=== PATIENT | female | born 1945 | race Caucasian/White ===

== ENCOUNTER 2017-09-14 11:14 | Emergency (ER) | payer OTHER ==
[2017-09-14 11:29] VITALS: TEMP 97.9
--- NOTE | 2017-09-14 12:22 | EDPHY ---
H & P Time Seen by Provider: 09/14/17 12:09 HPI/ROS: Chief complaint. Shortness of breath, cough HPI. 72-year-old female visiting from [place] presents with fever achiness cough for 6 days. Feels like she is wheezing. Generally weak. Nausea without vomiting or diarrhea. Exposure to flu. She did receive a flu shot. Using promethazine with codeine for cough. Shortness of breath with ambulation. No abdominal pain or chest discomfort. ROS Constitutional. Fever and chills and weakness Eyes. no problems with vision ENT. Congestion Cardiovascular. no chest pain Respiratory. Short of breath cough Abdominal. no abdominal pain, no nausea/vomiting, no diarrhea . no problems urinating MS. no calf pain/swelling, no neck/back pain, no joint pain Skin. no rash Lymph. no swollen glands Neuro. no headache, no dizziness, no difficulty walking or with speech Past Medical/Surgical History: Non-Hodgkin's lymphoma with splenectomy Social History: , nonsmoker, no alcohol Smoking Status: Never smoked Physical Exam: General Appearance: Alert well-developed female moderate distress vital signs are stable Eyes: Pupils equal and round no pallor or injection. ENT, pharynx slightly injected without exudate. Mucous membranes are moist Respiratory: Mild inspiratory expiratory rhonchi Cardiovascular: Regular rate and rhythm. Gastrointestinal: Abdomen is soft and nontender, no masses, bowel sounds normal. Neurological: Awake and alert, sensory and motor exams grossly normal. Skin: Warm and dry, no rashes. Musculoskeletal: Neck is supple nontender. Extremities symmetrical, full range of motion. Psychiatric: Patient is oriented X 3, there is no agitation. Constitutional: Initial Vital Signs Temperature (C) 36.6 C 09/14/17 11:27 Heart Rate 74 09/14/17 11:27 Respiratory Rate 18 09/14/17 11:27 Blood Pressure 119/69 09/14/17 11:27 O2 Sat (%) 96 09/14/17 11:27 O2 Delivery Mode Room Air Allergies/Adverse Reactions: No Known Allergies Allergy (Unverified 09/14/17 11:26) Home Medications: Medication Instructions Recorded Benzonatate [Tessalon Pearles (RX)] 100 mg PO Q4-6PRN PRN #20 cap 09/14/17 Promethazine With Codeine 09/14/17 Medical Decision Making - Diagnostics Imaging Results: Chest x-ray reviewed by me shows no evidence for pneumonia Procedures: Flu swab is positive IV normal saline with 1 L ED Course/Re-evaluation: Re-evaluation 2:00 p.m.. Patient is stable. Patient, her , and I discussed imaging and lab results. We discussed treatment plan and the fact that the patient is out of the window for treatment with Tamiflu. We talked about criteria for return importance of follow-up and further evaluation. They expressed understanding and agreement Differential Diagnosis: Viral syndrome, I concur considered influenza and the patient has flu B. I also then considered pneumonia as well as electrolyte abnormalities she has such as findings from [facility]. - Data Points Laboratory Results: Laboratory Results 09/14/17 12:40 09/14/17 12:40 09/14/17 09/14/17 09/14/17 12:40 12:40 11:36 WBC 4.19 10^3/uL 10^3/uL (3.80-9.50) RBC 4.75 10^6/uL 10^6/uL (4.18-5.33) Hgb 14.3 g/dL g/dL (12.6-16.3) Hct 44.2 % % (38.0-47.0) MCV 93.1 fL fL (81.5-99.8) MCH 30.1 pg pg (27.9-34.1) MCHC 32.4 g/dL g/dL (32.4-36.7) RDW 14.4 % % (11.5-15.2) Plt Count 196 10^3/uL 10^3/uL (150-400) MPV 10.7 fL fL (8.7-11.7) Neut % (Auto) 32.1 % L % (39.3-74.2) Lymph % (Auto) 44.9 % % (15.0-45.0) [place] % (Auto) 19.1 % H % (4.5-13.0) Eos % (Auto) 2.9 % % (0.6-7.6) Baso % (Auto) 1.0 % % (0.3-1.7) Nucleat RBC Rel Count 0.0 % % (0.0-0.2) Absolute Neuts (auto) 1.35 10^3/uL L 10^3/uL (1.70-6.50) Absolute Lymphs (auto) 1.88 10^3/uL 10^3/uL (1.00-3.00) Absolute Monos (auto) 0.80 10^3/uL 10^3/uL (0.30-0.80) Absolute Eos (auto) 0.12 10^3/uL 10^3/uL (0.03-0.40) Absolute Basos (auto) 0.04 10^3/uL 10^3/uL (0.02-0.10) Absolute Nucleated RBC 0.00 10^3/uL 10^3/uL (0-0.01) Immature Gran % 0.0 % % (0.0-1.1) Immature Gran # 0.00 10^3/uL 10^3/uL (0.00-0.10) Sodium 144 mEq/L mEq/L (135-145) Potassium 4.2 mEq/L mEq/L (3.5-5.2) Chloride 106 mEq/L mEq/L (97-110) Carbon Dioxide 26 mEq/l mEq/l (22-31) Anion Gap 12 mEq/L mEq/L (8-16) BUN 18 mg/dL mg/dL (7-23) Creatinine 0.8 mg/dL mg/dL (0.6-1.0) Estimated GFR > 60 Glucose 86 mg/dL mg/dL (70-100) Calcium 9.0 mg/dL mg/dL (8.5-10.4) Nasal Influenza A PCR NEGATIVE FOR FLU A (NEGATIVE) Nasal Influenza B PCR FLU B DETECTED H (NEGATIVE) RSV (PCR) NEGATIVE FOR RSV (NEGATIVE) Departure - Departure Disposition: Home, Routine, Self-Care Clinical Impression: Influenza Condition: Good Instructions: Influenza (ED) Additional Instructions: Drink plenty of fluids and stay hydrated. Tylenol 1000 mg every 4-6 hours, Motrin 600 mg every 6 hr as needed for fever and achiness. Test salon [facility] to help with cough. Return for worsening symptoms while you are visiting [place]. Recheck with your regular physician upon return to [place]. Referrals: MARSHA ALEXANDRA [Other] - As per Instructions Prescriptions: Benzonatate [Tessalon Pearles (RX)] 100 mg PO Q4-6PRN PRN #20 cap PRN Reason: Cough, Moderate
[2017-09-14 12:50] LABS: PLATELET COUNT 196 10^3/uL (150-400)
[2017-09-14 14:33] VITALS: BP 143/63; PULSE 69; RESP 16; O2SAT 91
== END 2017-09-14 14:32 | disposition home or self-care (01) ==
DX: J10.1 Influenza due to other identified influenza virus with other respiratory manifestations (principal)